=== PATIENT | female | born 1965 | race African-American/Black ===

== ENCOUNTER 2017-05-12 08:25 | Emergency (ER) | payer OTHER ==
[~2017-05-12] VITALS: Ht 167.6 cm; Wt 49.9 kg
--- NOTE | ~2017-05-12 | EKG ---
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
[2017-05-12 08:53] LABS: URINE BILIRUBIN NEGATIVE (Negative); URINE BLOOD NEGATIVE (Negative); URINE COLOR YELLOW; URINE GLUCOSE-RANDOM* NEGATIVE (Negative); URINE KETONES NEGATIVE (Negative); URINE NITRITE NEGATIVE (Negative); URINE PROTEIN (DIPSTICK) NEGATIVE (Negative); URINE UROBILINOGEN 0.2 E.U./dl (0.2-1.0)
[2017-05-12 08:55] LABS: ABSOLUTE NEUTROPHILS 2.9 thou/uL (1.4-8.2); EOSINOPHILS 1.2 % (0.0-3.0); HEMATOCRIT 41.1 % (37.0-47.0); HEMOGLOBIN 13.5 gm/dL (12.0-15.0); LYMPHOCYTES 35.6 % (24.0-44.0); MCHC 32.8 g/dL (28.0-37.0); MCV 91.4 fL (80.0-100.0); PLATELET COUNT 288 thou/uL (150-400); POLYS 56.2 % (36.0-66.0); RBC 4.49 mil/uL (4.20-5.00); WBC 5.2 thou/uL (4.0-11.0)
[2017-05-12 08:56] LABS: MANUAL DIFF NO
[2017-05-12 09:03] LABS: ANION GAP 9 mmol/L (7-16); BUN 11 mg/dL (7-18); CALCIUM 8.9 mg/dL (8.5-10.1); CHLORIDE 107 mmol/L (98-107); CO2 26 mmol/L (21-32); CREATININE 1.5 mg/dL (0.6-1.0); GLUCOSE 65 mg/dL (74-106); POTASSIUM 3.8 mmol/L (3.5-5.1); SODIUM 142 mmol/L (136-145)
[2017-05-12 09:12] LABS: TROPONIN-I < 0.04 ng/mL (<0.04-0.07)
[2017-05-12] MEDS ORDERED: MEDROLDOSEPACK PO (09:59)
[2017-05-12] MEDS ORDERED: NORVASC5 MG PO (09:59)
[2017-05-12 11:04] VITALS: BP 166/92
== END 2017-05-12 11:06 | disposition home or self-care (01) ==
LOC: ER 08:25
PROVIDERS: Emergency Medicine
DX: R07.89 Other chest pain (principal); M54.5 Low back pain; I10 Essential (primary) hypertension; J45.909 Unspecified asthma, uncomplicated; F17.210 Nicotine dependence, cigarettes, uncomplicated